=== PATIENT | female | born 1985 | race Caucasian/White ===

== ENCOUNTER 2023-07-17 11:04 | Emergency (ER) | payer BC ==
[~2023-07-17] VITALS: Ht 170.2 cm; Wt 68.0 kg
[2023-07-17 11:09] VITALS: O2SAT 99
[2023-07-17 12:18] LABS: BASOPHILS % 0.7 % (0.0-2.0); EOSINOPHILS % 0.2 % (0.0-5.0); HEMATOCRIT. 38.1 % (36.0-48.0); HEMOGLOBIN. 12.6 g/dL (12.0-16.0); LYMPHOCYTES % 17.9 % (20.0-50.0); MEAN CORPUSCULAR HEMOGLOBIN 28.2 pg (28.0-32.0); MEAN CORPUSCULAR HGB CONC 32.9 g/dL (31.0-37.0); MEAN CORPUSCULAR VOLUME 85.6 fL (81.0-99.0); MEAN PLATELET VOLUME 10.3 fl (7.4-10.4); MONOCYTES % 6.3 % (2.0-8.0); NEUTROPHILS % 74.9 % (40.0-76.0); PLATELET 215 x1000/uL (130-400); RED BLOOD CELL COUNT 4.45 mill/uL (4.2-5.4); RED CELL DISTRIBUTION WIDTH 13.2 % (11.6-14.6); WHITE BLOOD COUNT 10.4 x1000/uL (4.5-11.0)
[2023-07-17 12:31] LABS: CLARITY URINE CLOUDY (CLEAR); COLOR URINE ORANGE (YELLOW); GLUCOSE URINE NEGATIVE (NEGATIVE); KETONES URINE NEGATIVE (NEGATIVE); LEUKOCYTE ESTERASE URINE 2+ (NEGATIVE); NITRITE URINE NEGATIVE (NEGATIVE); OCCULT BLOOD URINE 3+ (NEGATIVE); PROTEIN URINE 1+ (NEGATIVE); UROBILINOGEN URINE 0.2 E.U./dL (0.2-1.0)
[2023-07-17 12:35] LABS: YEAST URINE NONE SEEN
[2023-07-17 12:48] LABS: HCG SCREEN NEGATIVE
[2023-07-17 12:49] LABS: ALANINE AMINOTRANSFERASE 26 IU/L (10-49); ALBUMIN 4.2 g/dL (3.2-4.8); ASPARTATE AMINOTRANSFERASE 26 IU/L (<34); BILIRUBIN TOTAL 0.7 mg/dL (0.1-1.0); CALCIUM 8.3 mg/dL (8.7-10.4); CARBON DIOXIDE 25 mEq/L (21-32); CHLORIDE 105 mEq/L (98-107); CREATININE 0.7 mg/dL (0.6-1.0); GLUCOSE 91 mg/dL (70-105); POTASSIUM 3.7 mEq/L (3.5-5.1); PROTEIN TOTAL 6.6 g/dL (6.0-8.3); SODIUM 139 mEq/L (136-145)
[2023-07-17 13:02] LABS: UREA NITROGEN BLOOD < 5 mg/dL (9-23)
[2023-07-17 13:03] LABS: ETHANOL BLOOD < 10 mg/dL (<10)
[2023-07-17 13:05] LABS: SQUAMOUS EPITHELIAL CELL URINE 3+ /lpf (RARE/1+)
[2023-07-17 13:06] LABS: BACTERIA URINE 2+; RBC URINE 0-2 /hpf (0-2)
[2023-07-17 13:19] LABS: *AMPHETAMINES SCREEN URINE Neg (NEGATIVE); *BARBITURATES SCREEN URINE Neg (NEGATIVE); *BENZODIAZEPINES SCREEN URINE Neg (NEGATIVE); *COCAINE SCREEN URINE Neg (NEGATIVE); CANNABINOID URINE SCREEN Pos (NEGATIVE); ECSTASY MDMA SCREEN URINE Neg (NEGATIVE); METHADONE URINE SCREEN Neg (NEGATIVE); OPIATES URINE SCREEN Neg (NEGATIVE); PHENCYCLIDINE URINE SCREEN Neg (NEGATIVE)
[2023-07-17] MEDS ORDERED: LORAZEPAM 2MG/ML CPJ IV STA (13:21)
[2023-07-17] MEDS ORDERED: OLANZAPINE 10 MG/VIAL IM ONE (13:30)
[2023-07-17] MEDS ORDERED: CEPHALEXIN 250MG CAPSULE PO NR (22:45)
[2023-07-17] MEDS ORDERED: DIPHENHYDRAMINE 50MG CAPSULE PO ONE (23:15)
[2023-07-17] MEDS ORDERED: DIPHENHYDRAMINE 25MG CAPSULE PO NR (23:30)
[2023-07-18] MEDS: CEPHALEXIN 250MG CAPSULE PO SCH ×2 (10:10→13:56)
[2023-07-18] MEDS ORDERED: QUETIAPINE FUMARATE 50MG TABLET PO SCH (10:30)
[2023-07-18 15:36] VITALS: BP 134/88; PULSE 115; RESP 16; TEMP 98.6
== END 2023-07-18 15:43 | disposition short-term general hospital (02) ==
LOC: ER 11:04
DX: F23 Brief psychotic disorder (principal)
CPT/HCPCS: 80053; 80305; 81003; 80320; 84703; 85025; 36415; 96372; 96374; 99285; 87426; Q0163; J3490; J2060; C9803; Z7610 ×2; G0480